=== PATIENT | male | born 1985 | race Caucasian/White ===

== ENCOUNTER 2020-06-25 12:15 | Emergency (ER) | payer OTHER ==
[~2020-06-25] VITALS: Ht 182.9 cm; Wt 93.9 kg
[2020-06-25] MEDS ORDERED: IRON325 M1 PO (12:23)
[2020-06-25] MEDS ORDERED: APAP W/CODEINE1 TA2 PO (13:19)
[2020-06-25] MEDS ORDERED: AUGMENTIN 875-1 EACH PO (13:19)
[2020-06-25 13:37] VITALS: BP 145/89
== END 2020-06-25 13:38 | disposition home or self-care (01) ==
LOC: M.ERS 12:15
DX: S61.411A Laceration without foreign body of right hand, initial encounter (principal); W54.0XXA Bitten by dog, initial encounter; Y93.89 Activity, other specified; Y92.89 Other specified places as the place of occurrence of the external cause; Y99.8 Other external cause status